=== PATIENT | male | born 1980 | race Caucasian/White ===

== ENCOUNTER 2018-09-18 15:10 | Inpatient (IN) ==
[2018-09-18] MEDS ORDERED: PHENOBARBITAL IV PRN (16:01)
[2018-09-18] MEDS ORDERED: DULCOLAX PR PRN (16:01)
[2018-09-18] MEDS ORDERED: IMODIUM PO PRN ×2 (16:01)
[2018-09-18] MEDS ORDERED: SENOKOT PO PRN (16:01)
[2018-09-18] MEDS ORDERED: TUBERSOL ID ONE (16:01)
[2018-09-18] MEDS ORDERED: D5W 1,000 ML IV PRN (16:01)
[2018-09-18] MEDS ORDERED: TYLENOL PO PRN (16:01)
[2018-09-18] MEDS ORDERED: MOTRIN PO PRN (16:01)
[2018-09-18] MEDS ORDERED: MAALOX PLUS LIQUID PO PRN (16:01)
[2018-09-18] MEDS ORDERED: ZOFRAN IV PRN (16:01)
[2018-09-18 16:45] LABS: HEMATOCRIT 43.6 % (42.0-52.0); HEMOGLOBIN 14.2 g/dL (14.0-18.0); MCH 28.5 PG (27-31); MCHC 32.6 g/dL (33-37); MCV 87.4 FL (81-99); MPV 9.6 FL (7.4-10.4); RBC 4.99 XMIL (4.7-6.1); RDW 14.5 % (11.5-14.5); WBC 14.05 X1000 (4.8-10.8)
[2018-09-18 17:04] LABS: AGAP 12; ALKALINE PHOSPHATASE 112 U/L (32-122); AMYLASE 61 U/L (20-200); BUN 12 mg/dL (8-22); CALCIUM 9.3 mg/dL (8.8-10.2); CHLORIDE 96 mmol/L (98-107); COSMO 275; CREATININE 0.6 mg/dL (0.7-1.2); ESTIMATED GFR > 60; GLUCOSE 98 mg/dL (70-104); GOT 19 U/L (10-34); GPT 30 U/L (10-44); LIPASE 40 U/L (13-60); POTASSIUM 4.1 mmol/L (3.5-5.1); SODIUM 138 mmol/L (136-145); TCO2 30 mmol/L (25-35); TOTAL BILIRUBIN < 0.15 mg/dL (0.20-1.00); TOTAL PROTEIN 7.8 g/dL (6.3-8.3)
[2018-09-18 17:11] LABS: UR AMPHETAMINES QUAL NONE DETECTED (NONE DETECT); UR BARBITUATES QUAL NONE DETECTED (NONE DETECT); UR BENZODIAZEPIN QUAL PRESUMPTIVE POSITIVE (NONE DETECT); UR CANNABINOIDS QUAL NONE DETECTED (NONE DETECT); UR COCAINE QUAL NONE DETECTED (NONE DETECT); UR METHADONE QUAL NONE DETECTED (NONE DETECT); UR METHAMPHETAMINE QUAL NONE DETECTED (NONE DETECT); UR OPIATES QUAL NONE DETECTED (NONE DETECT); UR OXYCODONE QUAL NONE DETECTED (NONE DETECT); UR PCP QUAL NONE DETECTED (NONE DETECT); UR PROPOXYPHENE QUAL NONE DETECTED (NONE DETECT); UR TCA QUAL NONE DETECTED (NONE DETECT)
[2018-09-18 17:35] LABS: URINE SOURCE CLEAN CATCH
[2018-09-18 18:02] LABS: BILIRUBIN URINE NEGATIVE (NEGATIVE); BLOOD URINE NEGATIVE (NEGATIVE); CLARITY CLEAR (CLEAR); COLOR YELLOW; GLUCOSE URINE NEGATIVE (NEGATIVE); KETONE URINE TRACE mg/dL (NEGATIVE); LEUKOCYTES URINE TRACE (NEGATIVE); NITRITE URINE NEGATIVE (NEGATIVE); PH URINE 6.5; PROTEIN URINE TRACE mg/dL (NEGATIVE); UROBILINOGEN URINE NORMAL
[2018-09-18] MEDS ORDERED: SINEMET 25/100 PO PRN (18:02)
[2018-09-18 18:03] LABS: URINE BACTERIA NEGATIVE /HFP; URINE CAST NONE SEEN /LPF; URINE CRYSTAL NONE SEEN /HPF; URINE EPITHELIAL CELLS >10 /HPF (<10); URINE RBC <10 /HPF (<10); URINE WBC <10 /HPF (<10); URINE YEAST NONE SEEN /HPF
[2018-09-18] MEDS ORDERED: M.V.I.-12 10 ML, FOLIC ACID 1 MG, MAGNESIUM SULFATE 1 GM, THIAMINE 100 MG in NS 1,000 ML IV ONE (18:30)
[2018-09-18] MEDS: SUBOXONE 2 MG/0.5 MG FILM SL SCH (19:04)
[2018-09-18] MEDS: NICODERM PATCH TD PRN (19:32)
[2018-09-18] MEDS: ROBAXIN PO PRN (21:00)
[2018-09-18] MEDS: SEROQUEL PO PRN (21:00)
[2018-09-18] MEDS: ZOFRAN ODT PO PRN (21:03)
[2018-09-19] MEDS: ATARAX PO PRN ×4 (02:57→20:56)
[2018-09-19] MEDS: DESYREL PO PRN (02:57)
[2018-09-19] MEDS: LIBRIUM PO PRN ×4 (02:57→20:55)
[2018-09-19] MEDS: ROBAXIN PO PRN ×4 (02:57→20:56)
[2018-09-19] MEDS: ZOFRAN IM PRN (03:03)
[2018-09-19] MEDS: SUBOXONE 2 MG/0.5 MG FILM SL SCH ×2 (05:46→17:53)
[2018-09-19] MEDS: PROTONIX PO SCH (06:03)
[2018-09-19] MEDS: THERA M PLUS PO SCH (09:16)
[2018-09-19] MEDS: FOLIC ACID PO SCH (09:16)
[2018-09-19] MEDS: VITAMIN B-1 PO SCH (09:16)
[2018-09-19] MEDS: NICOTINE GUM BUCCAL PRN ×2 (09:33→12:11)
[2018-09-19] MEDS: BENTYL PO PRN ×2 (14:58→20:55)
[2018-09-19] MEDS: SEROQUEL PO PRN (20:55)
[2018-09-19] MEDS: NICODERM PATCH TD PRN (21:04)
[2018-09-19] MEDS: ZOFRAN ODT PO PRN (21:04)
[2018-09-20] MEDS: ATARAX PO PRN (03:45)
[2018-09-20] MEDS: LIBRIUM PO PRN (03:45)
[2018-09-20] MEDS: BENTYL PO PRN (03:45)
[2018-09-20] MEDS: DESYREL PO PRN (03:45)
[2018-09-20] MEDS: ROBAXIN PO PRN (03:45)
[2018-09-20] MEDS: ZOFRAN IM PRN (03:46)
[2018-09-20] MEDS: SUBOXONE 2 MG/0.5 MG FILM SL SCH (06:16)
[2018-09-20] MEDS: PROTONIX PO SCH (06:16)
[2018-09-20 08:22] VITALS: BP 122/70
[2018-09-20] MEDS: THERA M PLUS PO SCH (09:18)
[2018-09-20] MEDS: FOLIC ACID PO SCH (09:18)
[2018-09-20] MEDS: VITAMIN B-1 PO SCH (09:18)
[2018-09-20] MEDS ORDERED: SUBOXONE 8 MG/2 MG FILM SL SCH (18:00)
--- NOTE | 2018-09-21 01:09 | PROGRESS NOTE ---
DATE: 09/19/2018 SUBJECTIVE: Patient seen and examined by myself on the . States that he is feeling somewhat better. Still did not sleep well last night. Still having lots of muscle aches and paroxysmal sweating. PHYSICAL EXAMINATION: Vital Signs: Reviewed. Temperature 98 degrees, pulse 104, respiratory 20, BP 126/81. General: Patient is in no current respiratory distress. Pleasant to talk with. HEENT: Normocephalic. Neck: Supple. CARDIOVASCULAR: Regular rate. No murmurs. Chest: Clear. Abdomen: Soft, nondistended. Extremities: Moves all extremities. ASSESSMENT: 1. Nausea and vomiting. 2. Abdominal pain. 3. Myalgias. 4. Paresthesias. 5. Paroxysmal sweating. 6. Opiate abuse, withdrawal and continued stabilization. 7. Chronic pain. 8. Chronic obstructive pulmonary disease. PLAN: Continue patient in the hospital. Currently on Suboxone 11/20. We will continue. Continue counseling. Further orders as needed. Hopefully home over the next day or two. cc: Philip Liang MD
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
== END 2018-09-20 10:13 | disposition home or self-care (01) | DRG 897 ==
LOC: P.DIRADM 15:10 → P.MEDSURG 15:23
PROVIDERS: ADMIT Family Medicine; ATTEND Family Medicine
CPT/HCPCS: 80053; 80104; 80301; 80305; 80307; 80320; 81001; 82055; 82150; 83690; 85027; A9270; G0431; G0434; G0477; G0480; G6040; J2405; J3411; J3475; J7030; S4995